=== PATIENT | male | born 1975 | race Caucasian/White ===

== ENCOUNTER 2018-07-19 19:59 | Emergency (ER) | payer MEDICAID ==
[~2018-07-19] VITALS: Wt 83.7 kg
[2018-07-19] MEDS ORDERED: ONDANSETRON 4 MG INJ IV STA (22:16)
[2018-07-19] MEDS ORDERED: SOD CHLORIDE 0.9% 1,000 ML IV STA (22:16)
[2018-07-19] MEDS ORDERED: morphine 4 MG/ML VIAL IV STA (22:16)
[2018-07-19] MEDS ORDERED: IOHEXOL 300MG/ML 150 ML BTL ONE (23:12)
[2018-07-19] MEDS ORDERED: SOD CHLORIDE 0.9% 100 ML ONE (23:12)
[2018-07-20] MEDS ORDERED: CIPROFLOXACIN 400MG/D5W 200 ML IVPB ONE (00:30)
[2018-07-20] MEDS ORDERED: metroNIDAZOLE 500 MG TAB PO ONE (00:30)
[2018-07-20] MEDS ORDERED: ACET500C5 PO (00:36)
[2018-07-20] MEDS ORDERED: PSYL3.4P11 PO (00:36)
[2018-07-20] MEDS ORDERED: METR500T PO (00:36)
[2018-07-20] MEDS ORDERED: CIPR500T4 PO (00:36)
[2018-07-20] MEDS ORDERED: TRAM50TA2 PO (00:36)
--- NOTE | 2018-07-20 00:39 | ERD ---
ER Documentation Chief Complaint Chief Complaint sent by urgent care: AP, dysuria, constipation x3d HPI 43-year-old male was referred by urgent care for some lower abdominal pain. He has tactile fevers at home but no fever triage. Denies vomiting. Denies any blood in the stool. Pain is bilateral lower abdomen. ROS All systems reviewed and are negative except as per history of present illness. Medications Home Meds Active Scripts Psyllium Husk (with Sugar) (Metamucil Packet) 3.4 Gm Powd.pack, 3.4 GM PO q day for 14 Days Prov:MUSTAPHA LIPSCOMB MD 07/20/18 Acetaminophen* (Tylophen*) 500 Mg Capsule, 1 CAP PO Q6H PRN for PAIN AND OR ELEVATED TEMP, #20 CAP Prov:MUSTAPHA LIPSCOMB MD 07/20/18 Metronidazole* (Flagyl*) 500 Mg Tablet, 500 MG PO TID for 7 Days, TAB Prov:MUSTAPHA LIPSCOMB MD 07/20/18 Ciprofloxacin Hcl* (Ciprofloxacin Hcl*) 500 Mg Tablet, 500 MG PO BID for 7 Days, #14 TAB Prov:MUSTAPHA LIPSCOMB MD 07/20/18 Discontinued Scripts Tramadol HCl (Tramadol HCl) 50 Mg Tablet, 50 MG PO Q4 PRN for PAIN, #15 TAB Prov:MUSTAPHA LIPSCOMB MD 07/20/18 Allergies Allergies: Coded Allergies: No Known Allergy (Unverified , 07/19/18) PMhx/Soc Medical and Surgical Hx: pt denies Medical Hx, pt denies Surgical Hx Hx Alcohol Use: Yes (Ocassional) Hx Substance Use: No Hx Tobacco Use: Yes Smoking Status: Current every day smoker FmHx Family History: No diabetes, No coronary disease, No other Physical Exam Vitals Vital Signs Date Temp Pulse Resp B/P (MAP) Pulse Ox O2 O2 Flow FiO2 Time Delivery Rate 07/19/18 99.6 104 16 145/69 96 20:13 (94) Physical Exam Const: No acute distress Head: Atraumatic Eyes: Normal Conjunctiva ENT: Normal External Ears, Nose and Mouth. Neck: Full range of motion. No meningismus. Resp: Clear to auscultation bilaterally Cardio: Regular rate and rhythm, no murmurs Abd: Soft, mild tenderness in the lower abdomen right equal to left. No exquisite tenderness at McBurney's point. No Burden sign. Non distended. Normal bowel sounds Skin: No petechiae or rashes Back: No midline or flank tenderness Ext: No cyanosis, or edema Neur: Awake and alert Psych: Normal Mood and Affect Result Diagram: 07/19/18222107/19/182221 Results 24 hrs Laboratory Tests Test 07/19/18 22:22 White Blood Count 15.1 10^3/ul Red Blood Count 4.56 10^6/ul Hemoglobin 13.8 g/dl Hematocrit 40.8 % Mean Corpuscular Volume 89.5 fl Mean Corpuscular Hemoglobin 30.3 pg Mean Corpuscular Hemoglobin Concent 33.8 g/dl Red Cell Distribution Width 12.3 % Platelet Count 330 10^3/UL Mean Platelet Volume 10.4 fl Immature Granulocytes % 0.500 % Neutrophils % 76.9 % Lymphocytes % 13.2 % Monocytes % 8.9 % Eosinophils % 0.3 % Basophils % 0.2 % Nucleated Red Blood Cells % 0.0 /100WBC Immature Granulocytes # 0.070 10^3/ul Neutrophils # 11.6 10^3/ul Lymphocytes # 2.0 10^3/ul Monocytes # 1.4 10^3/ul Eosinophils # 0.0 10^3/ul Basophils # 0.0 10^3/ul Nucleated Red Blood Cells # 0.0 10^3/ul Urine Color YELLOW Urine Clarity CLEAR Urine pH 6.0 Urine Specific [place] 1.027 Urine Ketones NEGATIVE mg/dL Urine Nitrite NEGATIVE mg/dL Urine Bilirubin NEGATIVE mg/dL Urine Urobilinogen NEGATIVE mg/dL Urine Leukocyte Esterase NEGATIVE Milli/ul Urine Hemoglobin NEGATIVE mg/dL Urine Glucose NEGATIVE mg/dL Urine Total Protein NEGATIVE mg/dl Sodium Level 138 mmol/L Potassium Level 4.1 mmol/L Chloride Level 101 mmol/L Carbon Dioxide Level 26 mmol/L Anion Gap 11 Blood Urea Nitrogen 15 mg/dl Creatinine 0.64 mg/dl Est Glomerular Filtrat Rate mL/min > 60 mL/min Glucose Level 106 mg/dl Calcium Level 9.8 mg/dl Total Bilirubin 1.4 mg/dl Direct Bilirubin 0.00 mg/dl Indirect Bilirubin 1.4 mg/dl Aspartate Amino Transf (AST/SGOT) 33 IU/L Alanine Aminotransferase (ALT/SGPT) 16 IU/L Alkaline Phosphatase 73 IU/L Total Protein 8.5 g/dl Albumin 4.8 g/dl Globulin 3.70 g/dl Albumin/Globulin Ratio 1.29 Lipase 27 U/L Current Medications Medications Dose Sig/Han Start Time Status Last (Trade) Ordered Route PRN Stop Time Admin Dose Reason Admin Sodium 1,000 ml @ Q1H STAT 07/19/18 DC 07/19/18 Chloride 1,000 mls/hr IV 22:16 07/19/18 22:30 23:15 Morphine 4 mg ONCE STAT 07/19/18 DC 07/19/18 Sulfate IV 22:16 07/19/18 22:29 (morphine) 22:17 Ondansetron 4 mg ONCE STAT 07/19/18 DC 07/19/18 HCl (Zofran IV 22:16 07/19/18 22:29 Inj) 22:17 Sodium 100 ml @ ud STK-MED 07/19/18 DC 07/19/18 Chloride ONCE .ROUTE 23:12 07/19/18 23:45 23:13 Iohexol 150 ml STK-MED 07/19/18 DC 07/19/18 (Omnipaque ONCE .ROUTE 23:12 07/19/18 23:45 300mg/ ml) 23:13 200 ml @ ONCE ONCE 07/20/18 Ciprofloxacin 200 mls/hr IVPB 00:30 07/20/18 / Dextrose 01:29 500 mg ONCE ONCE 07/20/18 DC Metronidazole PO 00:30 07/20/18 (Flagyl) 00:31 Procedures/MDM CBC shows leukocytosis of 15. Minimal anemia. CMP shows no acute abnormalities. Urine is negative. Concerns for diverticulitis versus appendicitis versus additional causes of lower abdominal pain. CT abdomen pelvis shows diverticulitis without abscess or perforation. Patient was given morphine, Zofran, Cipro, Flagyl and was stable throughout the ER course. Patient has no signs or symptoms of acute surgical abdomen. We will treat with Cipro, Flagyl, Tylenol, Metamucil, recommendations for primary care follow-up and return precautions for fevers, vomiting, worsening pain, blood, new worsening symptoms or with primary care doctor as directed. The patient was stable with no new complaints during the ER course. Clinically, there is no current evidence to suggest meningitis, sepsis, acute abdomen, pneumonia, stroke, acute coronary syndrome, pulmonary embolism, aortic dissection or any other emergent condition appearing to require further evaluation or hospitalization. Patient counseled regarding my diagnostic impression and care plan. Prior to discharge all questions answered. Pt agrees with treatment plan and understands strict return precautions. Pt is instructed to follow up with primary care provider within 24-48 hours. Precautionary instructions provided including instructions to return to the ER if not improving or for any worsening or changing symptoms or concerns. Departure Diagnosis: Primary Impression: Diverticulitis Condition: Stable Patient Instructions: Diverticulitis [facility] Usted se sun hecho un examen mdico de control que le indica que no est en ramos condicin que requiera tratamiento urgente en el Departamento de Emergencia. Un estudio ms profundo y el tratamiento de santoyo condicin pueden esperar sin ningn riesgo hasta que usted sea atendida/o en el consultorio de santoyo mdico o ramos cl patricia. Es responsabilidad suya arreglar ramos jered para el seguimiento del ailyn. MANEJO DE CONDICIONES NO URGENTES EN EL FUTURO 1) Si usted tiene un mdico de atencin primaria: Usted debera llamar a santoyo mdico de atencin primaria antes de venir al departamento de emergencia. Despus de las horas de consultorio, santoyo doctor o santoyo asociado/a est disponible por telfono. El mdico o enfermero de tin en el servicio telefnico puede asesorarle por shannan medio para atender el problema, o ailyn contrario se puede programar ramos jered. 2) Si usted no tiene un mdico de atencin primaria: Llame al mdico o clnica de referencia que aparece abajo pepe las horas de consultorio para hacer ramos jered para que le vean. CLINICAS: [facility] 000 [phone] [address] [facility] [phone] [facility] [place] [id number] [facility] [phone] [place] [id number] [phone] [facility]. [phone] [address] Additional Instructions: Cheque otro vez con santoyo doctor primario en el proximo harris or regresa para mas o nueva simptomas- fiebre, vomito , mas dolor.. MUSTAPHA LIPSCOMB MD Jul 20, 2018 00:39
[2018-07-20 02:01] VITALS: BP 122/67; PULSE 84; RESP 20
== END 2018-07-20 02:02 | disposition home or self-care (01) ==
LOC: FTE 19:59
DX: K57.32 Diverticulitis of large intestine without perforation or abscess without bleeding (principal); F17.210 Nicotine dependence, cigarettes, uncomplicated
CPT/HCPCS: 36415; 74177; 80053; 81003; 83690; 85025; 96374; 96375; J0744; J2270; J2405; J7030; Q9967; Z7502; Z7610

== ENCOUNTER 2018-11-19 04:30 | Emergency (ER) | payer SELFPAY ==
[~2018-11-19] VITALS: Ht 167.6 cm; Wt 85.1 kg
[~2018-11-19 04:30] MED LIST: ACET500C5 PO; CIPR500T4 PO; METR500T PO; PSYL3.4P11 PO
[2018-11-19 04:32] VITALS: Ht 167.6 cm; Wt 85.1 kg
--- NOTE | 2018-11-19 06:14 | ERD ---
ER Documentation Chief Complaint Chief Complaint L SHOULDER YOJANA X'S 2 DAYS HPI This patient is a 43-year-old male who presents with left exterior shoulder and left rib cage pain after he fell from ladder 2 days ago. No head injury or neck pain. Pain is mild to moderate worse with movement. He is right-hand dominant. ROS All systems reviewed and are negative except as per history of present illness. Medications Home Meds Active Scripts Ibuprofen* (Motrin*) 600 Mg Tab, 600 MG PO Q6H PRN for PAIN AND OR ELEVATED TEMP, #30 TAB Prov:MIRIAM HURT PA-C 11/19/18 Psyllium Husk (with Sugar) (Metamucil Packet) 3.4 Gm Powd.pack, 3.4 GM PO q day for 14 Days Prov:MUSTAPHA LIPSCOMB MD 07/20/18 Acetaminophen* (Tylophen*) 500 Mg Capsule, 1 CAP PO Q6H PRN for PAIN AND OR ELEVATED TEMP, #20 CAP Prov:MUSTAPHA LIPSCOMB MD 07/20/18 Metronidazole* (Flagyl*) 500 Mg Tablet, 500 MG PO TID for 7 Days, TAB Prov:MUSTAPHA LIPSCOMB MD 07/20/18 Ciprofloxacin Hcl* (Ciprofloxacin Hcl*) 500 Mg Tablet, 500 MG PO BID for 7 Days, #14 TAB Prov:MUSTAPHA LIPSCOMB MD 07/20/18 Allergies Allergies: Coded Allergies: No Known Allergy (Unverified , 07/19/18) PMhx/Soc Medical and Surgical Hx: pt denies Medical Hx, pt denies Surgical Hx History of Surgery: No Anesthesia Reaction: No Hx Neurological Disorder: No Hx Respiratory Disorders: No Hx Cardiac Disorders: No Hx Psychiatric Problems: No Hx Miscellaneous Medical Probl: No Hx Alcohol Use: Yes (Ocassional) Hx Substance Use: No Hx Tobacco Use: Yes Smoking Status: Former smoker FmHx Family History: No diabetes Physical Exam Vitals Vital Signs Date Temp Pulse Resp B/P (MAP) Pulse Ox O2 O2 Flow FiO2 Time Delivery Rate 11/19/18 97.1 58 18 126/73 98 04:32 (90) Physical Exam Const: No acute distress Head: Atraumatic Eyes: Normal Conjunctiva ENT: Normal External Ears, Nose and Mouth. Neck: Full range of motion. No meningismus. Resp: Clear to auscultation bilaterally Cardio: Regular rate and rhythm, no murmurs Musculoskeletal: Left shoulder has full range of motion, no bony abnormalities, no clavicular tenderness, sensation to light touch is intact throughout, left- sided chest and rib cage has no step-offs or bony abnormalities, sensation to light touch is intact, nontender Results 24 hrs Current Medications Medications Dose Sig/Han Start Time Status Last (Trade) Ordered Route PRN Stop Time Admin Dose Reason Admin Ibuprofen 800 mg ONCE ONCE 11/19/18 DC 11/19/18 (Motrin) PO 06:30 11/19/18 06:20 06:31 Procedures/MDM Patient has left-sided rib cage pain and shoulder pain. His x-rays are negative. He was given Motrin. He was given prescription for ibuprofen for home. Patient counseled regarding my diagnostic impression and care plan. Prior to discharge all questions answered. Pt agrees with treatment plan and understands strict return precautions. Pt is instructed to follow up with primary care provider within 24-48 hours. Precautionary instructions provided including instructions to return to the ER if not improving or for any worsening or changing symptoms or concerns. Departure Diagnosis: Primary Impression: Rib contusion Additional Impression: Shoulder pain Condition: Stable MIRIAM HURT PA-C Nov 19, 2018 06:14
[2018-11-19] MEDS ORDERED: IBUPROFEN 800 MG TAB PO ONE (06:30)
[2018-11-19] MEDS ORDERED: IBUP-1542 PO (06:48)
[2018-11-19 07:02] VITALS: BP 123/70; PULSE 71; RESP 18
== END 2018-11-19 07:21 | disposition home or self-care (01) ==
LOC: FTE 04:30
DX: S20.212A Contusion of left front wall of thorax, initial encounter (principal); S49.92XA Unspecified injury of left shoulder and upper arm, initial encounter; W11.XXXA Fall on and from ladder, initial encounter; Y92.9 Unspecified place or not applicable; Z87.891 Personal history of nicotine dependence
CPT/HCPCS: 71100; 73030; 93005